=== PATIENT | male | born 1980 | race Caucasian/White ===

== ENCOUNTER 2020-01-17 12:25 | Emergency (ER) | payer BC, OTHER ==
[2020-01-17] MEDS ORDERED: Bacitracin/Neomycin/Polymyxin B Oint 28.4 GM Tube TOP ONE (14:04)
--- NOTE | 2020-01-17 14:15 | EDM.PDOC ---
ED HPI GENERAL MEDICAL PROBLEM - General Chief Complaint: Burn Stated Complaint: BURNHAM ON FACE AND ARMS Time Seen by Provider: 01/17/20 13:52 Source of Information: Reports: Patient History Limitations: Reports: No Limitations - History of Present Illness INITIAL COMMENTS - FREE TEXT/NARRATIVE: 39 y/o male with no significant health problems presents with burnham of the face and arms from a mist of hot lead he was working with at home. He poured hot lead into a container with a small amount of water. A hot mist developed and the patient sustained burnham. He denies shortness of breath, sore throat, voice changes or difficulty swallowing. He is a smoker and denies any chronic lung disease. Arm Pain Score (Numeric/FACES): 4 - Related Data Allergies Allergy/AdvReac Type Severity Reaction Status Date / Time No Known Allergies Allergy Verified 01/17/20 13:46 Home Meds: Home Meds NK [No Known Home Meds] 05/23/14 [History] Past Medical History - Past Health History Medical/Surgical History: Denies Medical/Surgical History Social & Family History - Tobacco Use Smoking Status *Q: Heavy Tobacco Smoker Years of Tobacco use: 20 Packs/Tins Daily: 30 - Caffeine Use Caffeine Use: Reports: Energy Drinks - Recreational Drug Use Recreational Drug Use: Yes Recreational Drug Type: Reports: Marijuana/Hashish Recreational Drug Use Frequency: Weekly ED ROS GENERAL - Review of Systems Review Of Systems: See Below Constitutional: Reports: No Symptoms HEENT: Denies: Eye Discharge, Eye Pain, Nose Pain, Sinus Problem, Throat Pain, Throat Swelling, Vision Change Respiratory: Denies: Shortness of Breath, Wheezing, Cough Cardiovascular: Denies: Chest Pain Skin: Reports: Burn(s), Change in Color Neurological: Reports: No Symptoms ED EXAM, BURN/SMOKE INHALATION - Physical Exam Exam: See Below Exam Limited By: No Limitations General Appearance: Alert, WD/WN, No Apparent Distress Ears (Abbreviated): Normal External Exam Mouth/Throat: No: Dental Tenderness, Gum Swelling, Hoarse Voice, Lip Swelling, Pharyngeal Erythema, Throat Pain, Throat Swelling, Tongue Swelling, Tonsillar Erythema, Uvular Edema Respiratory: No Respiratory Distress, Lungs Clear, Normal Breath Sounds. No: Decreased Breath Sounds, Wheezing, Tachypnea, Productive Carbonaous Sputum Skin Exam: Other (He has superficial burnham of the right forearm, cheeks and lips. ) Course - Vital Signs Text/Narrative:: This patient has superficial burnham of the face and lips without signs of burnham, erythema, swelling or obstruction of the oropharynx and upper airway. There is no wheezing. The burn on his forearm was superfical and was dressed with antibiotic ointment and telfa dressings. Tetanus booster was recommended but he declined. He will continue to clean and dress the wounds daily. He will return to the ER as needed for problems. Last Recorded V/S: Last Vital Signs Temp 36.3 C 01/17/20 13:47 Pulse 62 01/17/20 13:47 Resp 16 01/17/20 13:47 BP 138/65 01/17/20 13:47 Pulse Ox 97 01/17/20 13:47 - Orders/Labs/Meds Meds: Medications Discontinued Medications Generic Name Dose Route Start Last Admin Trade Name Freq PRN Reason Stop Dose Admin Neomycin/Polymyxin/Bacitracin 0 gm 01/17/20 14:04 Triple Antibiotic Oint TOP 01/17/20 14:05 ONETIME ONE Departure - Departure Time of Disposition: 14:10 Disposition: Home, Self-Care 01 Condition: Good Clinical Impression: Superficial burn - Discharge Information *PRESCRIPTION DRUG MONITORING PROGRAM REVIEWED*: No *COPY OF PRESCRIPTION DRUG MONITORING REPORT IN PATIENT RONEL: No Referrals: PCP,None [Primary Care Provider] - Additional Instructions: Keep the burnham clean and covered with antibiotic ointment. Take Tylenol or ibuprofen as needed for pain. Follow up with your primary care provider in the clinic if you have increased problems or concerns. Sepsis Event Note (ED) - Evaluation Sepsis Screening Result: No Definite Risk - Focused Exam Vital Signs: Vital Signs Temp Pulse Resp BP Pulse Ox 01/17/20 13:47 36.3 C 62 16 138/65 97 01/17/20 13:46 36.3 C 62 16 138/65 97
[2020-01-17] MEDS ORDERED: Bacitracin Oint 1 GM U/D Packet TOP ONE (14:21)
== END 2020-01-17 14:30 | disposition home or self-care (01) ==
LOC: JP.ED 12:25
DX: T22.111A Burn of first degree of right forearm, initial encounter (principal); T20.16XA Burn of first degree of forehead and cheek, initial encounter; T20.12XA Burn of first degree of lip(s), initial encounter; F17.210 Nicotine dependence, cigarettes, uncomplicated; X19.XXXA Contact with other heat and hot substances, initial encounter; Y92.009 Unspecified place in unspecified non-institutional (private) residence as the place of occurrence of the external cause
CPT/HCPCS: 16000; 99283; A9270-GY